=== PATIENT | male | born 1975 | race Hispanic/Latino ===

== ENCOUNTER 2024-09-16 00:10 | Emergency (ER) | payer SELFPAY ==
[2024-09-16] MEDS ORDERED: Boostrix 0.5 ML (Tdap) VIAL (>/=7 yrs of age) ONE (00:41)
[2024-09-16] MEDS ORDERED: Lidocaine 1% PF 5 ML VIAL ONE (01:59)
== END 2024-09-16 02:29 | disposition home or self-care (01) ==
LOC: ERS 00:10
DX: S82.852A Displaced trimalleolar fracture of left lower leg, initial encounter for closed fracture (principal); S01.511A Laceration without foreign body of lip, initial encounter; E11.9 Type 2 diabetes mellitus without complications; Z23 Encounter for immunization; Z75.8 Other problems related to medical facilities and other health care; Z55.0 Illiteracy and low-level literacy; Y04.0XXA Assault by unarmed brawl or fight, initial encounter; Y93.89 Activity, other specified
CPT/HCPCS: 12011; 27808; 36416; 90471; 90715